=== PATIENT | male | born 1985 ===

== ENCOUNTER 2017-07-21 18:41 | Emergency (ER) | payer OTHER ==
[~2017-07-21] VITALS: Ht 170.2 cm; Wt 72.8 kg
[2017-07-21 18:55] VITALS: BP 146/93
== END 2017-07-21 21:39 | disposition left against medical advice (07) ==
LOC: ER 18:42
DX: R10.32 Left lower quadrant pain (principal); Z53.21 Procedure and treatment not carried out due to patient leaving prior to being seen by health care provider